=== PATIENT | male | born 1970 | race Caucasian/White ===

== ENCOUNTER 2016-05-08 22:44 | Emergency (ER) | payer BC ==
[2016-05-08] MEDS ORDERED: ceFAZolin 1 GM in Dextrose (*) 1 GM/50 ML BAG IVPB ONE (23:10)
[2016-05-08] MEDS ORDERED: Tetan/Diph/Pertus SYR(Tdap)* 0.5 ML SYR(BOOSTRIX) use SYR IM ONE (23:10)
--- NOTE | 2016-05-08 23:12 | ED ---
Laceration/Wound HPI - HPI Summary HPI Summary: 46M presents with right pinky finger injury today. He states that he is unable to move the distal tip of his finger well. There is an obvious deformity to his DIP. He states that he fell on some rocks today because he was moving around in the dark and tripped on something. He does not known when his last tetanus is. he is right handed. He denies any numbness or tingling. - History of Current Complaint Stated Complaint: FINGER LAC/INJURY Time Seen by Provider: 05/08/16 22:55 Pain Intensity: 3 - Allergy/Home Medications Allergies/Adverse Reactions: Allergies Allergy/AdvReac Type Severity Reaction Status Date / Time No Known Allergies Allergy Verified 05/08/16 22:53 PMH/Surg Hx/FS Hx/Imm Hx Endocrine/Hematology History: Denies: Hx Diabetes Cardiovascular History: Denies: Hx Hypertension Infectious Disease History: No Infectious Disease History: Denies: Traveled Outside the [place] in Last 30 Days - Family History Known Family History: Positive: Hypertension - Social History Alcohol Use: Occasionally Substance Use Type: Reports: None Smoking Status (MU): Never Smoked Tobacco Review of Systems Negative: Fever Negative: Chest Pain Negative: Shortness Of Breath Positive: Myalgia - pain in right pinky finger Positive: Other - laceration right pinky finger All Other Systems Reviewed And Are Negative: Yes Physical Exam Triage Information Reviewed: Yes Vital Signs On Initial Exam: Initial Vitals Temp Pulse Resp BP Pulse Ox 98.7 F 80 15 156/102 99 05/08/16 22:48 05/08/16 22:48 05/08/16 22:48 05/08/16 22:48 05/08/16 22:48 Vital Signs Reviewed: Yes Appearance: Positive: Well-Appearing Skin: Positive: Warm, Dry Head/Face: Positive: Normal Head/Face Inspection Eyes: Positive: Normal, Conjunctiva Clear Respiratory/Lung Sounds: Positive: Clear to Auscultation, Breath Sounds Present Cardiovascular: Positive: Normal, RRR Musculoskeletal: Positive: Limited @ - DIP joint, full ROM of PIP, Other - 3cm by 1/2 cm wide laceration present across middle phalanx of right pinky finger that does not appear to enter joint capsule, sensation grossly intact, capillary refill <2secs Procedures - Joint Reduction Joint Reduction Site: other Specify Other Joint Reduced: right pinky finger Conscious Sedation: No Reduction Attempts: 2 - reduced joint but after removed hands joint became dislocated again Pre-Procedure NV Exam: Yes - intact Post Joint Reduction Film: will have follow up with ortho as unable to keep joint reduced - Laceration/Wound Repair 1 Location: Other - right pinky finger Description: Linear Anesthesia: Digital, 1.0% Length, Depth and Shape: 3cm by 1/2 cm width and 1/4 depth, does not appear to entire joint capsule Betadine Prep?: Yes Irrigated w/ Saline (ccs): 1,000 Laceration/Wound Explored: clean, no foreign body removed Closure: Single Layer Suture Type: Prolene - 4-0 Number of Sutures: 4 Layer Closure?: No Sterile Dressing Applied?: No Diagnostics - Vital Signs Vital Signs Temp Pulse Resp BP Pulse Ox 05/08/16 22:48 98.7 F 80 15 156/102 99 - Laboratory Lab Statement: Any lab studies that have been ordered have been reviewed, and results considered in the medical decision making process. - Radiology pinky finger Xray Interpretation: Positive (See Comments) - dislocation of DIP with small avulsion present Radiology Interpretation Completed By: ED Physician Laceration Repair Course/Dx - Course Course Of Treatment: 46M presents with laceration of middle phalanx of right pinky and deformity to the pinky at DIP. on exam 3cm laceration of middle phalanx that ends on lateral aspect of DIP. xray showed dislocation and small avulsion fracture. attempt relocation and was able to relocate it but then it slipped back out of place. laceration does not appear to go into joint capsule. discussed with dr han who recommended speaking to ortho. spoke with dr marroquin agreed with plan to suture, splint in place, and call office tomorrow morning for further evalution. placed 4 sutures in area and was unable to line wound edges perfectly due to dislocation moving wound edges. placed pinky in finger splint. gave dose of ancef and tetanus and told to follow up with ortho. told to continue antibiotics. patient understands and agrees with plan - Differential Dx Differental Diagnoses: Abrasion, Fracture, Joint Space Violation, Laceration, Other - dislocation - Clinical Impression Provider Diagnoses: Dislocation of right little finger, Laceration of right little finger - Physician Notifications Discussed Care Of Patient With: dr marroquin Time Discussed With Above Provider: 23:30 - suture, splint, follow up with ortho tomorrow Discharge - Discharge Plan Condition: Good Disposition: HOME Prescriptions: Cephalexin CAP* [Keflex CAP*] 500 mg PO BID #13 cap oxyCODONE/Acetamin 5/325 MG* [Percocet 5/325 TAB*] 1 tab PO Q6H PRN #10 tab MDD 4 PRN Reason: Pain Patient Education Materials: Finger Dislocation (ED) Referrals: Musa HOLT,Jimmy Santos [Primary Care Provider] - Raya Marroquin MD [Medical Doctor] - Additional Instructions: Follow up with ortho today, if would like to use Dr. Marroquin office call today at 8am for appointment time today Keep splint on area Take antibiotic twice a day for 7 days Keep area dry Take ibuprofen for pain every 6 hours, use narcotic for break through pain Inc fiber with narcotic Return to ED if develop any new or worsening symptoms Images - Images Hands: 1 - 3cm by 1/2 cm laceration
[2016-05-09] MEDS ORDERED: oxyCODONE/Acetamin 5/325 MG* TAB PO ONE (00:29)
[2016-05-09] MEDS ORDERED: Cephalexin CAP* 500 MG PO ONE (00:29)
--- NOTE | 2016-05-09 01:01 | ED ---
Anthony Batista Alok, scribed for Gerald Walker MD on 05/09/16 at 0001 . Re-Evaluation - Re-Evaluation First Eval Re-Evaluation Time: 23:30 Course/Dx - Course Course Of Treatment: 4cm laceration of middle phalnax that ends on lateral aspect of DIP. attempt relocation and was able to relocate it but then it slipped back out of place. does not appear to go into joint capsule. dr schmidt agreed with plan to suture, splint, and call office tomorrow morning. . - Diagnoses Provider Diagnoses: Dislocation of right little finger, Laceration of right little finger The documentation as recorded by the leonibAnthony toney Alok accurately reflects the service I personally performed and the decisions made by , Gerald Walker MD.
[2016-05-09 02:18] VITALS: BP 112/78
--- NOTE | 2016-05-09 07:41 | RAD ---
INDICATION: Right fifth finger injury. TECHNIQUE: 3 views of the right fifth finger were obtained. FINDINGS: There is dislocation of the proximal interphalangeal joint with the middle phalanx displaced one shaft diameter posterior and one half shaft diameter medial. The bones are overriding. In addition there are couple small chip fracture fragments present adjacent to the inferior aspect of the middle phalanx. IMPRESSION: DISLOCATION OF THE PROXIMAL INTERPHALANGEAL JOINT WITH CHIP FRACTURE FRAGMENTS ADJACENT TO THE BASE OF THE MIDDLE PHALANX.
== END 2016-05-09 01:10 | disposition home or self-care (01) ==
LOC: ED 22:44
DX: S63.256A Unspecified dislocation of right little finger, initial encounter (principal); S61.216A Laceration without foreign body of right little finger without damage to nail, initial encounter; W19.XXXA Unspecified fall, initial encounter; Y93.89 Activity, other specified; Y92.89 Other specified places as the place of occurrence of the external cause
CPT/HCPCS: 12002; 73140; 90471; 90715; 99282; A9270-GY; J0690